=== PATIENT | male | born 1965 | race African-American/Black ===

== ENCOUNTER 2018-07-04 11:04 | Inpatient (IN) | payer OTHER ==
[2018-07-04 12:51] VITALS: BMI 22.7
--- NOTE | 2018-07-04 14:45 | HP ---
COWS - Scale Resting Pulse: 0= [place] 80 or Below Sweatin=Flushed/Facial Moisture Restless Observation: 0= Sits Still Pupil Size: 2= Moderately Dilated Bone or Joint Aches: 2= Severe Diffuse Aches Runny Nose/ Eye Tearin= Nasal Congestion GI Upset > 30mins: 2= Nausea/Diarrhea Tremor Observation: 1= Tremor [place], Not Seen Yawning Observation: 1= 1-2x During Session Anxiety or Irritability: 2=Irritable/Anxious Goose Flesh Skin: 0=Smooth Skin COWS Score: 13 CIWA Score - Admission Criteria OASAS Guidelines: Admission for Medically Managed Detox: Requires at least one of the followin. CIWA greater than 12 2. Seizures within the past 24 hours 3. Delirium tremens within the past 24 hours 4. Hallucinations within the past 24 hours 5. Acute intervention needed for co occurring medical disorder 6. Acute intervention needed for co occurring psychiatric disorder 7. Severe withdrawal that cannot be handled at a lower level of care (continued vomiting, continued diarrhea, abnormal vital signs) requiring intravenous medication and/or fluids 8. Admission ROS [facility] Chief Complaint: HEROIN WITHDRAWAL SYMPTOMS. Allergies/Adverse Reactions: Allergies Allergy/AdvReac Type Severity Reaction Status Date / Time erythromycin base AdvReac Verified 07/04/18 13:58 shellfish derived AdvReac Verified 07/04/18 13:58 History of Present Illness: PATIENT REFERRED BY [facility] FOR DETOX FROM HEROIN. PATIENT STARTED SNIFFING HEROIN AT AGE 12. SNIFFS UP TO 15 BAGS DAILY, LAST TIME HE USED WAS THIS MORNING. PATIENT DENIES H/O OVERDOSE AND SEIZURES. +HISTORY OF FALLS AND BLACKOUTS. THIS IS PATIENTS FIRST ADMISSION TO DETOX AT [facility]. PATIENT PMH INCLUDES ASTHMA, BACK PAIN-CHRONIC AND AMBULATES WITH CANE, PROSTATE CANCER AND DEPRESSION. DENIES SI/HI AND SUICIDE ATTEMPTS. Exam Limitations: No Limitations - Ebola screening Have you traveled outside of the country in the last 21 days: No Have you had contact with anyone from an Ebola affected area: No Have you been sick,other than usual withdrawal symptoms: No Do you have a fever: No - Review of Systems Constitutional: Chills, Night Sweats, Changes in sleep, Unexplained wgt Loss EENT: reports: Nose Congestion Respiratory: reports: SOB with Exertion Cardiac: reports: No Symptoms Reported GI: reports: Diarrhea, Nausea, Poor Fluid Intake : reports: No Symptoms Reported Musculoskeletal: reports: Back Pain, Muscle Pain Integumentary: reports: Sweating Neuro: reports: Headache, Tremors Endocrine: reports: Unexplained Weight Loss Hematology: reports: No Symptoms Reported Psychiatric: reports: Orientated x3, Anxious, Depressed Patient History - Patient Medical History Hx Anemia: No Hx Asthma: Yes Hx Chronic Obstructive Pulmonary Disease (COPD): No Hx Cancer: Yes (NEW DX PROSTATE CANCER) Hx Cardiac Disorders: No Hx Congestive Heart Failure: No Hx Hypertension: No Hx Hypercholesterolemia: No Hx Pacemaker: No HX Cerebrovascular Accident: No Hx Seizures: No Hx Dementia: No Hx Diabetes: No Hx Gastrointestinal Disorders: No Hx Liver Disease: No Hx Genitourinary Disorders: No Hx Sexually Transmitted Disorders: No Hx Renal Disease (ESRD): No Hx Thyroid Disease: No Hx Human Immunodeficiency Virus (HIV): No Hx Hepatitis C: No Hx Depression: Yes Hx Suicide Attempt: No Hx Bipolar Disorder: No Hx Schizophrenia: No - Patient Surgical History Past Surgical History: No Hx Neurologic Surgery: No Hx Cataract Extraction: No Hx Cardiac Surgery: No Hx Lung Surgery: No Hx Breast Surgery: No Hx Breast Biopsy: No Hx Abdominal Surgery: No Hx Appendectomy: No Hx Cholecystectomy: No Hx Genitourinary Surgery: No Hx Orthopedic Surgery: No Anesthesia Reaction: No - PPD History Previous Implant?: Yes Documented Results: Positive w/o proof Implanted On Prior R Admission?: No PPD to be Administered?: No - Smoking Cessation Smoking history: Current every day smoker Have you smoked in the past 12 months: Yes Aproximately how many cigarettes per day: 10 Hx Chewing Tobacco Use: No Initiated information on smoking cessation: Yes 'Breaking Loose' booklet given: 07/04/18 - Substance & Tx. History Hx Alcohol Use: No Hx Substance Use: Yes Substance Use Type: Heroin Hx Substance Use Treatment: No - Substances Abused Heroin Route: Inhalation Frequency: Daily Amount used: 15 BAGS Age of first use: 12 Date of Last Use: 07/04/18 Non-Rx Methadone Route: Oral Frequency: 1-2 times per week Amount used: 80MG Age of first use: 43 Date of Last Use: 07/01/18 Family Disease History - Family Disease History Family Disease History: CA: Mother (ALIVE, UNKNOW TYPE) Admission Physical Exam BHS - Vital Signs Vital Signs: Vital Signs - 24 hr 07/04/18 12:43 Temperature 98.7 F Pulse Rate 71 Respiratory 18 Rate Blood Pressure 127/83 - Physical General Appearance: Yes: Thin, Tremorous, Sweating, Anxious HEENTM: Yes: EOMI, Hearing grossly Normal, Normocephalic, Normal Voice, MAYDA, Pharynx Normal, Nasal Congestion Respiratory: Yes: Chest Non-Tender, Lungs Clear, Normal Breath Sounds, No Respiratory Distress, No Accessory Muscle Use Neck: Yes: No masses,lesions,Nodules, Supple Breast: Yes: Breast Exam Deferred Cardiology: Yes: Regular Rhythm, Regular Rate, S1, S2 Abdominal: Yes: Normal Bowel Sounds, Non Tender, Soft Genitourinary: Yes: Within Normal Limits Back: Yes: Normal Inspection, Muscle Spasm Musculoskeletal: Yes: full range of Motion, Back pain, Muscle Pain Extremities: Yes: Normal Inspection, Normal Range of Motion, Non-Tender, Tremors Neurological: Yes: datapower consultant II-XII NML intact, Fully Oriented, Alert, Normal Response , Depressed Affect Integumentary: Yes: Normal Color, Warm, Moist Lymphatic: Yes: Within Normal Limits - Diagnostic (1) Opioid dependence with withdrawal Current Visit: Yes Status: Acute (2) Nicotine dependence Current Visit: Yes Status: Chronic Qualifiers: Nicotine product type: cigarettes Substance use status: uncomplicated Qualified Code(s): F17.210 - Nicotine dependence, cigarettes, uncomplicated (3) Back pain Current Visit: Yes Status: Chronic Qualifiers: Back pain location: low back pain Chronicity: unspecified Back pain laterality: unspecified Sciatica laterality: sciatica laterality unspecified (4) Depressed affect Current Visit: Yes Status: Suspected Cleared for Admission [facility] - Detox or Rehab [facility] Level of Care: Medically Managed Detox Regimen/Protocol: Methadone [facility] Breath Alcohol Content Breath Alcohol Content: 0 Urine Drug Screen - Results Drug Screen Negative: No Urine Drug Screen Results: OPI-Opiates, MET-Methamphetamine, FEN-Fentanyl
[2018-07-04] MEDS ORDERED: MAGNESIUM HYDROX 2400MG/30ML ORAL SUSPENSION 30 ML CUP PO PRN (14:58)
[2018-07-04] MEDS ORDERED: LOPERAMIDE HCL 2 MG CAPSULE PO PRN (14:58)
[2018-07-04] MEDS ORDERED: hydrOXYzine PAMOATE 50 MG CAPSULE (FP) PO PRN (14:58)
[2018-07-04] MEDS ORDERED: guaiFENesin/D-METHORPHAN HB 10 ML UNIT-DOSE CUPS PO PRN (14:58)
[2018-07-04] MEDS ORDERED: P-EPHED 60MG/TRIPROLIDI 2.5MG TABLET PO PRN (14:58)
[2018-07-04] MEDS ORDERED: MENTHOL/PHENOL 1 EACH UD MM PRN (14:58)
[2018-07-04] MEDS ORDERED: MAGNESIUM CITRATE 300 ML BOTTLE PO PRN (14:58)
[2018-07-04] MEDS ORDERED: NICOTINE POLACRILEX 2 MG GUM BC PRN (14:58)
[2018-07-04] MEDS ORDERED: ACETAMINOPHEN 325 MG TABLET (FP) PO PRN (14:58)
[2018-07-04] MEDS ORDERED: IBUPROFEN 400 MG TABLET (FP) PO PRN (14:58)
[2018-07-04] MEDS ORDERED: MAG HYDROX/AL HYDROX/SIMETH 30 ML UNIT-DOSE CUP PO PRN (14:58)
[2018-07-04] MEDS: diazePAM 5 MG TABLET PO PRN (18:42)
[2018-07-04] MEDS: ALBUTEROL SO4 8 GM HFA INHALER IH PRN (18:44)
[2018-07-04] MEDS ORDERED: METHADONE HCL 10 MG TABLET (FOR DETOX USE ONLY) PO ONE ×2 (18:45→23:00)
--- NOTE | 2018-07-04 20:03 | PN ---
BHS Progress Note Note: Patient states on Symbicort inhaler BID for COPD and wants it to be given.
[2018-07-04] MEDS: THIAMINE HCL 100 MG TABLET (FP) PO SCH (22:23)
[2018-07-04] MEDS: CYCLOBENZAPRINE HCL 5 MG TABLET PO PRN (22:23)
[2018-07-04] MEDS: MELATONIN 5 MG TABLETS PO PRN (22:24)
[2018-07-04] MEDS: BUDESONIDE/FORMETEROL FUMARATE 80/4.5 mcg INHALER IH SCH (22:25)
--- NOTE | 2018-07-05 08:47 | CONSULT ---
[facility] Psychiatric Consult - Data Date of interview: 07/05/18 Admission source: [facility] Identifying data: Patient is a 53 year old single male, father of two, unemployed, residing in a correction, and is supported by disability benefits. This is patient's first admission to detox at [facility]. Patient admitted to for opioid dependence. Substance Abuse History: Smoking Cessation. Smoking history: Current every day smoker. Have you smoked in the past 12 months: Yes. Aproximately how many cigarettes per day: 10. Hx Chewing Tobacco Use: No. Initiated information on smoking cessation: Yes. 'Breaking Loose' booklet given: 07/04/18. - Substance & Tx. History. Hx Alcohol Use: No. Hx Substance Use: Yes. Substance Use Type : Heroin. Hx Substance Use Treatment: No. - Substances Abused. Heroin. Route: Inhalation. Frequency: Daily. Amount used: 15 BAGS. Age of first use: 12. Date of Last Use: 07/04/18. Non-Rx Methadone. Route: Oral. Frequency : 1-2 times per week. Amount used: 80MG. Age of first use: 43. Date of Last Use: 07/01/18 Medical History: prostate cancer. Psychiatric History: Patient denies h/o psychiatric hospitalization, outpatient care, and suicide attempt. Physical/Sexual Abuse/Trauma History: denies. Mental Status Exam - Mental Status Exam Alert and Oriented to: Time, Place, Person Cognitive Function: Good Patient Appearance: Unkempt Mood: Euthymic Affect: Mood Congruent Patient Behavior: Cooperative Speech Pattern: Appropriate Voice Loudness: Moderately Soft/Quiet Thought Process: Intact, Goal Oriented Thought Disorder: Not Present Hallucinations: Denies Suicidal Ideation: Denies Homicidal Ideation: Denies Insight/Judgement: Poor Sleep: Fair Appetite: Fair Muscle strength/Tone: Normal Gait/Station: Normal Psychiatric Findings - Problem List ([place] 1, 2,3) (1) Opioid dependence with withdrawal Current Visit: Yes Status: Acute (2) Nicotine dependence Current Visit: Yes Status: Chronic Qualifiers: Nicotine product type: cigarettes Substance use status: uncomplicated Qualified Code(s): F17.210 - Nicotine dependence, cigarettes, uncomplicated - Initial Treatment Plan Initial Treatment Plan: Psychoeducation provided. Detoxification in progress. Observation.
[2018-07-05] MEDS ORDERED: METHADONE HCL 10 MG TABLET (FOR DETOX USE ONLY) PO ONE (10:00)
--- NOTE | 2018-07-05 10:11 | PN ---
[facility]HS COWS - Scale Resting Pulse: 0= [place] 80 or Below Sweatin=Flushed/Facial Moisture Restless Observation: 0= Sits Still Pupil Size: 2= Moderately Dilated Bone or Joint Aches: 0= None Runny Nose/ Eye Tearin= None GI Upset > 30mins: 2= Nausea/Diarrhea Tremor Observation of Outstretched Hands: 0= None Yawning Observation: 1= 1-2x During Session Anxiety or Irritability: 1=Feels Anxious/Irritable Goose Flesh Skin: 0=Smooth Skin COWS Score: 8 BHS Progress Note (SOAP) Subjective: PATIENT C/O SWEATING, CHILLS, ANXIETY AND DIARRHEA. Objective: 07/05/18 10:10 Vital Signs Temperature 98.7 F 07/05/18 09:16 Pulse Rate 65 07/05/18 09:16 Respiratory Rate 18 07/05/18 09:16 Blood Pressure 100/58 L 07/05/18 09:16 O2 Sat by Pulse Oximetry (%) PE: ALERT AND ORIENTED X 3 SKIN WARM AND MOIST CAR S1S2 RESP CTA BL EXT FULL ROM, AMB AD SILVIA ANXIOUS Assessment: 07/05/18 10:11 WITHDRAWAL SX Plan: CONTINUE DETOX REGIMEN ENCOURAGE ORAL FLUIDS CONTINUE TO MONITOR CLINICALLY
[2018-07-05 10:17] LABS: HEMATOCRIT 40.9 % (35.4-49); HEMOGLOBIN 13.3 GM/dL (11.7-16.9); MCH 29.3 pg (25.7-33.7); MCHC 32.5 g/dl (32.0-35.9); MEAN PLT VOLUME 8.2 fl (7.5-11.1); PLATELET COUNT 299 K/MM3 (134-434); RBC 4.54 M/mm3 (4.00-5.60); WHITE BLOOD COUNT 4.7 K/mm3 (4.0-10.0)
[2018-07-05] MEDS: PRENATAL VITAMINS W/ FOLIC ACID TABLET (FP) PO SCH (10:22)
[2018-07-05] MEDS: NICOTINE 21 MG/24 HOURS TOPICAL PATCH TD SCH (10:22)
[2018-07-05] MEDS: MONTELUKAST NA 10 MG TABLET PO SCH (10:22)
[2018-07-05] MEDS: BUDESONIDE/FORMETEROL FUMARATE 80/4.5 mcg INHALER IH SCH ×2 (10:22→22:14)
[2018-07-05] MEDS: diazePAM 5 MG TABLET PO PRN ×2 (10:22→22:14)
[2018-07-05] MEDS: ALBUTEROL SO4 8 GM HFA INHALER IH PRN (10:24)
[2018-07-05 10:41] LABS: ALBUMIN 3.2 g/dl (3.4-5.0); ALK PHOS 84 U/L (45-117); ANION GAP 6 MMOL/L (8-16); BILIRUBIN,TOTAL 0.3 mg/dL (0.2-1); BLOOD UREA NITROGEN 12 mg/dL (7-18); CALCIUM 8.3 mg/dL (8.5-10.1); CHLORIDE 107 mmol/L (98-107); CO2 30 mmol/L (21-32); CREATININE 0.7 mg/dL (0.55-1.3); GLUCOSE,RANDOM 91 mg/dL (74-106); POTASSIUM 4.3 mmol/L (3.5-5.1); SGOT/AST 17 U/L (15-37); SGPT/ALT 16 U/L (13-61); SODIUM 143 mmol/L (136-145); TOT PROT 6.3 g/dl (6.4-8.2)
--- NOTE | 2018-07-05 11:55 | EKG ---
Test Reason : Blood Pressure : / mmHG Vent. Rate : 062 BPM Atrial Rate : 062 BPM P-R Int : 130 ms QRS Dur : 108 ms QT Int : 442 ms P-R-T Axes : 076 067 069 degrees QTc Int : 448 ms NORMAL SINUS RHYTHM NORMAL ECG NO PREVIOUS ECGS AVAILABLE Confirmed by EDINSON NICHOLSON MD ([id number]) on 07/05/2018 11:55:38 AM Referred By: Confirmed By:EDINSON NICHOLSON MD
[2018-07-05] MEDS: THIAMINE HCL 100 MG TABLET (FP) PO SCH (22:14)
[2018-07-05] MEDS: CYCLOBENZAPRINE HCL 5 MG TABLET PO PRN (22:14)
[2018-07-06] MEDS ORDERED: METHADONE HCL 5 MG TABLET (FOR DETOX USE ONLY) PO ONE (10:00)
[2018-07-06] MEDS: diazePAM 5 MG TABLET PO PRN (10:13)
[2018-07-06] MEDS: BUDESONIDE/FORMETEROL FUMARATE 80/4.5 mcg INHALER IH SCH ×2 (10:13→22:59)
[2018-07-06] MEDS: NICOTINE 21 MG/24 HOURS TOPICAL PATCH TD SCH (10:13)
[2018-07-06] MEDS: PRENATAL VITAMINS W/ FOLIC ACID TABLET (FP) PO SCH (10:14)
[2018-07-06] MEDS: MONTELUKAST NA 10 MG TABLET PO SCH (10:14)
--- NOTE | 2018-07-06 11:02 | PN ---
BHS COWS - Scale Resting Pulse: 0= [place] 80 or Below Sweatin= Chills/Flushing Restless Observation: 1= Difficult to Sit Still Pupil Size: 0= Normal to Room Light Bone or Joint Aches: 1= Mild Discomfort Runny Nose/ Eye Tearin= None GI Upset > 30mins: 0= None Tremor Observation of Outstretched Hands: 2= Slight Tremor Visible Yawning Observation: 0= None Anxiety or Irritability: 1=Feels Anxious/Irritable Goose Flesh Skin: 0=Smooth Skin COWS Score: 6 BHS Progress Note (SOAP) Subjective: PATIENT C/O SHAKES, CHILLS, INTERRUPTED SLEEP, ANXIETY/RESTLESSNESS. Objective: 07/06/18 11:00 Vital Signs Temperature 98.2 F 07/06/18 06:29 Pulse Rate 68 07/06/18 06:29 Respiratory Rate 18 07/06/18 06:29 Blood Pressure 117/70 07/06/18 06:29 O2 Sat by Pulse Oximetry (%) Laboratory Tests 07/05/18 07/05/18 07/05/18 07:00 07:00 07:00 WBC 4.7 RBC 4.54 Hgb 13.3 Hct 40.9 MCV 90.0 MCH 29.3 MCHC 32.5 RDW 15.0 Plt Count 299 MPV 8.2 Sodium 143 Potassium 4.3 Chloride 107 Carbon Dioxide 30 Anion Gap 6 L BUN 12 Creatinine 0.7 Creat Clearance w eGFR > 60 Random Glucose 91 Calcium 8.3 L Total Bilirubin 0.3 AST 17 ALT 16 Alkaline Phosphatase 84 Total Protein 6.3 L Albumin 3.2 L RPR Titer Nonreactive PE: ALERT AND ORIENTED X 3 SKIN WARM, +SWEATING TO CHEST AREA EXT FULL ROM, NO EDEMA, MILD TREMORS FELT AMB AD SILVIA Assessment: 07/06/18 11:02 A/P: WITHDRAWAL SX Plan: CONTINUE DETOX REGIMEN ENCOURAGE ORAL FLUIDS CONTINUE TO MONITOR CLINICALLY 07/06/18 11:02
[2018-07-06] MEDS: THIAMINE HCL 100 MG TABLET (FP) PO SCH (22:18)
[2018-07-06] MEDS: CYCLOBENZAPRINE HCL 5 MG TABLET PO PRN (22:18)
[2018-07-06] MEDS: MELATONIN 5 MG TABLETS PO PRN (22:18)
[2018-07-06 23:30] LABS: URINE APPEARANCE TURBID; URINE BILIRUBIN NEGATIVE (<2.0 mg/dL); URINE COLOR YELLOW; URINE GLUCOSE (UA) NEGATIVE (NEGATIVE); URINE KETONE TRACE (NEGATIVE); URINE LEUK ESTERASE NEGATIVE (NEGATIVE); URINE NITRITE NEGATIVE (NEGATIVE); URINE PROTEIN 1+ (NEGATIVE); URINE UROBILINOGEN NEGATIVE mg/dL (0.2-1.0)
[2018-07-06 23:42] LABS: CALCIUM OXALATE CRYSTALS MODERATE /hpf (NONE SEEN); EPI CELLS RARE /HPF (FEW); URINE BACTERIA RARE /hpf (NONE SEEN); URINE MUCUS MANY
[2018-07-07] MEDS ORDERED: METHADONE HCL 5 MG TABLET (FOR DETOX USE ONLY) PO ONE (10:00)
[2018-07-07] MEDS: CYCLOBENZAPRINE HCL 5 MG TABLET PO PRN ×2 (10:21→22:28)
[2018-07-07] MEDS: MONTELUKAST NA 10 MG TABLET PO SCH (10:21)
[2018-07-07] MEDS: PRENATAL VITAMINS W/ FOLIC ACID TABLET (FP) PO SCH (10:21)
[2018-07-07] MEDS: BUDESONIDE/FORMETEROL FUMARATE 80/4.5 mcg INHALER IH SCH ×2 (10:21→22:27)
[2018-07-07] MEDS: NICOTINE 21 MG/24 HOURS TOPICAL PATCH TD SCH (10:21)
--- NOTE | 2018-07-07 10:52 | PN ---
[facility] Progress Note Note: PATIENT CONTINUES WITH DETOX REGIMEN. ALERT AND ORIENTED X 3. STATES HE FEELS BETTER. C/O POOR APPETITE. Vital Signs Temperature 98.5 F 07/07/18 09:55 Pulse Rate 74 07/07/18 09:55 Respiratory Rate 18 07/07/18 09:55 Blood Pressure 116/81 07/07/18 09:55 O2 Sat by Pulse Oximetry (%) Laboratory Tests 07/05/18 07/05/18 07/05/18 07:00 07:00 07:00 WBC 4.7 RBC 4.54 Hgb 13.3 Hct 40.9 MCV 90.0 MCH 29.3 MCHC 32.5 RDW 15.0 Plt Count 299 MPV 8.2 Sodium 143 Potassium 4.3 Chloride 107 Carbon Dioxide 30 Anion Gap 6 L BUN 12 Creatinine 0.7 Creat Clearance w eGFR > 60 Random Glucose 91 Calcium 8.3 L Total Bilirubin 0.3 AST 17 ALT 16 Alkaline Phosphatase 84 Total Protein 6.3 L Albumin 3.2 L Urine Color Urine Appearance Urine pH Ur Specific [place] Urine Protein Urine Glucose (UA) Urine Ketones Urine Blood Urine Nitrite Urine Bilirubin Urine Urobilinogen Ur Leukocyte Esterase Urine WBC (Auto) Urine RBC (Auto) Ur Epithelial Cells Calcium Oxalate Crystal Urine Bacteria Urine Mucus RPR Titer Nonreactive 07/06/18 14:50 WBC RBC Hgb Hct MCV MCH MCHC RDW Plt Count MPV Sodium Potassium Chloride Carbon Dioxide Anion Gap BUN Creatinine Creat Clearance w eGFR Random Glucose Calcium Total Bilirubin AST ALT Alkaline Phosphatase Total Protein Albumin Urine Color Yellow Urine Appearance Turbid Urine pH 5.0 Ur Specific [place] 1.030 Urine Protein 1+ H Urine Glucose (UA) Negative Urine Ketones Trace H Urine Blood Negative Urine Nitrite Negative Urine Bilirubin Negative Urine Urobilinogen Negative Ur Leukocyte Esterase Negative Urine WBC (Auto) 3 Urine RBC (Auto) 6 Ur Epithelial Cells Rare Calcium Oxalate Crystal Moderate Urine Bacteria Rare Urine Mucus Many RPR Titer PE: SKIN WARM AND DRY ALERT AND ORIENTED X 3 EXT FULL ROM AMB AD SILVIA CALM MANNER A/P: WITHDRAWAL SX CONTINUE DETOX ENCOURAGE ORAL FLUIDS ADD ENSURE SUPPLEMENT 120 ML PO BID
[2018-07-07] MEDS: THIAMINE HCL 100 MG TABLET (FP) PO SCH (22:28)
[2018-07-07] MEDS: MELATONIN 5 MG TABLETS PO PRN (22:28)
[2018-07-08] MEDS ORDERED: METHADONE HCL 10 MG TABLET (FOR DETOX USE ONLY) PO ONE (10:00)
[2018-07-08] MEDS: MONTELUKAST NA 10 MG TABLET PO SCH (10:07)
[2018-07-08] MEDS: PRENATAL VITAMINS W/ FOLIC ACID TABLET (FP) PO SCH (10:07)
[2018-07-08] MEDS: CYCLOBENZAPRINE HCL 5 MG TABLET PO PRN (10:07)
[2018-07-08] MEDS: NICOTINE 21 MG/24 HOURS TOPICAL PATCH TD SCH (10:07)
[2018-07-08] MEDS: BUDESONIDE/FORMETEROL FUMARATE 80/4.5 mcg INHALER IH SCH ×2 (10:46→22:24)
--- NOTE | 2018-07-08 13:29 | PN ---
BHS Progress Note (SOAP) Subjective: Anxious, restless. Patient stated that he plans to return to his old suboxone program in [place] upon discharge Objective: 07/08/18 13:26 Last Vital Signs Temp Pulse Resp BP Pulse Ox 98.1 F 71 16 111/71 07/08/18 09:26 07/08/18 09:26 07/08/18 09:26 07/08/18 09:26 Laboratory Tests 07/05/18 07/05/18 07/05/18 07:00 07:00 07:00 WBC 4.7 RBC 4.54 Hgb 13.3 Hct 40.9 MCV 90.0 MCH 29.3 MCHC 32.5 RDW 15.0 Plt Count 299 MPV 8.2 Sodium 143 Potassium 4.3 Chloride 107 Carbon Dioxide 30 Anion Gap 6 L BUN 12 Creatinine 0.7 Creat Clearance w eGFR > 60 Random Glucose 91 Calcium 8.3 L Total Bilirubin 0.3 AST 17 ALT 16 Alkaline Phosphatase 84 Total Protein 6.3 L Albumin 3.2 L Urine Color Urine Appearance Urine pH Ur Specific [place] Urine Protein Urine Glucose (UA) Urine Ketones Urine Blood Urine Nitrite Urine Bilirubin Urine Urobilinogen Ur Leukocyte Esterase Urine WBC (Auto) Urine RBC (Auto) Ur Epithelial Cells Calcium Oxalate Crystal Urine Bacteria Urine Mucus RPR Titer Nonreactive 07/06/18 14:50 WBC RBC Hgb Hct MCV MCH MCHC RDW Plt Count MPV Sodium Potassium Chloride Carbon Dioxide Anion Gap BUN Creatinine Creat Clearance w eGFR Random Glucose Calcium Total Bilirubin AST ALT Alkaline Phosphatase Total Protein Albumin Urine Color Yellow Urine Appearance Turbid Urine pH 5.0 Ur Specific [place] 1.030 Urine Protein 1+ H Urine Glucose (UA) Negative Urine Ketones Trace H Urine Blood Negative Urine Nitrite Negative Urine Bilirubin Negative Urine Urobilinogen Negative Ur Leukocyte Esterase Negative Urine WBC (Auto) 3 Urine RBC (Auto) 6 Ur Epithelial Cells Rare Calcium Oxalate Crystal Moderate Urine Bacteria Rare Urine Mucus Many RPR Titer Labs reviewed: UA abnormal Assessment: 07/08/18 13:27 Withdrawal symptoms Noted with abnormal UA Plan: Continue detox Abnormal UA: encouraged PO water intake, repeat UA today. Follow up with PCP within 1-2 weeks post discharge
[2018-07-08 19:24] LABS: URINE APPEARANCE SLCLOUDY; URINE BILIRUBIN NEGATIVE (<2.0 mg/dL); URINE COLOR AMBER; URINE GLUCOSE (UA) NEGATIVE (NEGATIVE); URINE KETONE TRACE (NEGATIVE); URINE LEUK ESTERASE NEGATIVE (NEGATIVE); URINE NITRITE NEGATIVE (NEGATIVE); URINE PROTEIN NEGATIVE (NEGATIVE); URINE UROBILINOGEN NEGATIVE mg/dL (0.2-1.0)
[2018-07-08] MEDS: THIAMINE HCL 100 MG TABLET (FP) PO SCH (22:24)
[2018-07-08] MEDS: MELATONIN 5 MG TABLETS PO PRN (22:24)
[2018-07-09] MEDS ORDERED: METHADONE HCL 5 MG TABLET (FOR DETOX USE ONLY) PO ONE (06:00)
[2018-07-09 09:40] VITALS: BP 120/77; PULSE 79; TEMP 97.5
[2018-07-09] MEDS: PRENATAL VITAMINS W/ FOLIC ACID TABLET (FP) PO SCH (10:26)
[2018-07-09] MEDS: CYCLOBENZAPRINE HCL 5 MG TABLET PO PRN (10:27)
[2018-07-09] MEDS: NICOTINE 21 MG/24 HOURS TOPICAL PATCH TD SCH (10:28)
[2018-07-09] MEDS: BUDESONIDE/FORMETEROL FUMARATE 80/4.5 mcg INHALER IH SCH (10:29)
--- NOTE | 2018-07-09 10:46 | DS ---
[facility] Detox Discharge Summary Admission Date: 07/04/18 Discharge Date: 07/09/18 - History Present History: Opioid Dependence Additional Comments: 53 years old male admitted on 07/04/18 for opiate withdrawal sx completed opiate detox regimen - Physical Exam Results Vital Signs: Vital Signs Temperature 97.5 F L 07/09/18 09:40 Pulse Rate 79 07/09/18 09:40 Respiratory Rate 20 07/09/18 09:40 Blood Pressure 120/77 07/09/18 09:40 O2 Sat by Pulse Oximetry (%) Pertinent Admission Physical Exam Findings: opiate withdrawal sx Vital Signs Temperature 97.5 F L 07/09/18 09:40 Pulse Rate 79 07/09/18 09:40 Respiratory Rate 20 07/09/18 09:40 Blood Pressure 120/77 07/09/18 09:40 O2 Sat by Pulse Oximetry (%) Laboratory Last Values WBC 4.7 K/mm3 (4.0-10.0) 07/05/18 07:00 RBC 4.54 M/mm3 (4.00-5.60) 07/05/18 07:00 Hgb 13.3 GM/dL (11.7-16.9) 07/05/18 07:00 Hct 40.9 % (35.4-49) 07/05/18 07:00 MCV 90.0 fl (80-96) 07/05/18 07:00 MCH 29.3 pg (25.7-33.7) 07/05/18 07:00 MCHC 32.5 g/dl (32.0-35.9) 07/05/18 07:00 RDW 15.0 % (11.9-15.9) 07/05/18 07:00 Plt Count 299 K/MM3 (134-434) 07/05/18 07:00 MPV 8.2 fl (7.5-11.1) 07/05/18 07:00 Sodium 143 mmol/L (136-145) 07/05/18 07:00 Potassium 4.3 mmol/L (3.5-5.1) 07/05/18 07:00 Chloride 107 mmol/L (98-107) 07/05/18 07:00 Carbon Dioxide 30 mmol/L (21-32) 07/05/18 07:00 Anion Gap 6 MMOL/L (8-16) L 07/05/18 07:00 BUN 12 mg/dL (7-18) 07/05/18 07:00 Creatinine 0.7 mg/dL (0.55-1.3) 07/05/18 07:00 Creat Clearance w eGFR > 60 (>60) 07/05/18 07:00 Random Glucose 91 mg/dL (74-106) 07/05/18 07:00 Calcium 8.3 mg/dL (8.5-10.1) L 07/05/18 07:00 Total Bilirubin 0.3 mg/dL (0.2-1) 07/05/18 07:00 AST 17 U/L (15-37) 07/05/18 07:00 ALT 16 U/L (13-61) 07/05/18 07:00 Alkaline Phosphatase 84 U/L (45-117) 07/05/18 07:00 Total Protein 6.3 g/dl (6.4-8.2) L 07/05/18 07:00 Albumin 3.2 g/dl (3.4-5.0) L 07/05/18 07:00 Urine Color [place] 07/08/18 16:15 Urine Appearance Slcloudy 07/08/18 16:15 Urine pH 5.0 (5.0-8.0) 07/08/18 16:15 Ur Specific [place] 1.030 (1.010-1.035) 07/08/18 16:15 Urine Protein Negative (NEGATIVE) 07/08/18 16:15 Urine Glucose (UA) Negative (NEGATIVE) 07/08/18 16:15 Urine Ketones Trace (NEGATIVE) H 07/08/18 16:15 Urine Blood Negative (NEGATIVE) 07/08/18 16:15 Urine Nitrite Negative (NEGATIVE) 07/08/18 16:15 Urine Bilirubin Negative (<2.0 mg/dL) 07/08/18 16:15 Urine Urobilinogen Negative mg/dL (0.2-1.0) 07/08/18 16:15 Ur Leukocyte Esterase Negative (NEGATIVE) 07/08/18 16:15 Urine WBC (Auto) 3 /hpf (3-5) 07/06/18 14:50 Urine RBC (Auto) 6 /hpf (0-3) 07/06/18 14:50 Ur Epithelial Cells Rare /HPF (FEW) 07/06/18 14:50 Calcium Oxalate Crystal Moderate /hpf (NONE SEEN) 07/06/18 14:50 Urine Bacteria Rare /hpf (NONE SEEN) 07/06/18 14:50 Urine Mucus Many 07/06/18 14:50 RPR Titer Nonreactive (NONREACTIVE) 07/05/18 07:00 lab noted - Treatment Hospital Course: Detox Protocol Followed, Detoxed Safely, Responded well, Discharged Condition Good, Rehab Referral Accepted Patient has Accepted [facility] - Medication Discharge Medications: Ambulatory Orders Cyclobenzaprine HCl 5 mg PO DAILY PRN 07/04/18 Fluticasone Propionate [Flovent Diskus] 50 mcg IH DAILY PRN 07/04/18 Ibuprofen 400 mg PO Q6H PRN 07/04/18 Montelukast Sodium [Singulair] 10 mg PO DAILY 07/04/18 Prednisone 20 mg PO DAILY 07/04/18 Sulfamethoxazole/Trimethoprim [Sulfamethoxazole-Tmp Ds Tablet] 1 each PO DAILY 07/04/18 Triamcinolone Acetonide [24 Hour Nasal Allergy] 16.9 ml NS DAILY 07/04/18 - Diagnosis (1) Opioid dependence with withdrawal Current Visit: Yes Status: Acute (2) Nicotine dependence Current Visit: Yes Status: Acute Qualifiers: Nicotine product type: cigarettes Substance use status: in withdrawal Qualified Code(s): F17.213 - Nicotine dependence, cigarettes, with withdrawal (3) Asthma Current Visit: Yes Status: Chronic Qualifiers: Asthma severity: mild Asthma persistence: intermittent Asthma complication type: with status asthmaticus Qualified Code(s): J45.22 - Mild intermittent asthma with status asthmaticus - AMA Did Patient Leave Against Medical Advice: No
[2018-07-09] MEDS: MONTELUKAST NA 10 MG TABLET PO SCH (11:25)
== END 2018-07-09 14:15 | disposition other institution (70) | DRG 773 ==
LOC: YASAS 11:04 → Y3N 17:03
PROC: HZ2ZZZZ Detoxification Services for Substance Abuse Treatment (ICD-10-PCS; principal; 2018-07-04)
DX: F11.23 Opioid dependence with withdrawal (principal); F17.213 Nicotine dependence, cigarettes, with withdrawal; F32.9 Major depressive disorder, single episode, unspecified; J45.22 Mild intermittent asthma with status asthmaticus; C61 Malignant neoplasm of prostate; M54.5 Low back pain; R26.89 Other abnormalities of gait and mobility; Z99.89 Dependence on other enabling machines and devices
CPT/HCPCS: 36415; 71045-TC-FY; 80053; 81003; 81015; 85027; 86593; 93005; 93010

== ENCOUNTER 2018-07-09 14:24 | Inpatient (IN) | payer OTHER ==
--- NOTE | 2018-07-09 21:03 | HP ---
[facility] Rehab Assess/Revision - Admission History Admitted to Rehab from: [facility] Date of Admission to Rehab: 07/09/2018 - Vital signs Vital Signs: Vital Signs Period Temp Pulse Resp BP Sys/Szymanski Pulse Ox Last 24 Hr 98.8 F 89 18 115/75 - Findings Detox History & Physical reviewed: Yes Concur with findings: Yes Inpatient Rehab Admission - Initial Determination Are CD services needed?: Yes Free of communicable disease: Yes Not in need of hospitalization: Yes - Rehab Admission Criteria Previous failed treatment: Yes Poor recovery environment: Yes Comorbidities: Yes Lacks judgement: No Patient is meeting Inpatient Rehab admission criteria:: Yes
[2018-07-09] MEDS ORDERED: NICOTINE POLACRILEX 2 MG GUM BUC PRN (21:09)
[2018-07-09] MEDS ORDERED: LOPERAMIDE HCL 2 MG CAPSULE PO PRN (21:09)
[2018-07-09] MEDS ORDERED: MAGNESIUM CITRATE 300 ML BOTTLE PO PRN (21:09)
[2018-07-09] MEDS ORDERED: CYCLOBENZAPRINE HCL 5 MG TABLET PO PRN (21:09)
[2018-07-09] MEDS ORDERED: MENTHOL/PHENOL 1 EACH UD MM PRN (21:09)
[2018-07-09] MEDS ORDERED: MAG HYDROX/AL HYDROX/SIMETH 30 ML UNIT-DOSE CUP PO PRN (21:09)
[2018-07-09] MEDS ORDERED: MAGNESIUM HYDROX 2400MG/30ML ORAL SUSPENSION 30 ML CUP PO PRN (21:09)
[2018-07-09] MEDS: MONTELUKAST NA 10 MG TABLET PO SCH (21:57)
[2018-07-09] MEDS: THIAMINE HCL 100 MG TABLET (FP) PO SCH (21:58)
[2018-07-09] MEDS: MELATONIN 5 MG TABLETS PO PRN (21:59)
[2018-07-09] MEDS: ACETAMINOPHEN 325 MG TABLET (FP) PO PRN (22:00)
--- NOTE | 2018-07-10 06:09 | HP ---
Psychiatrist Admission - Data Date of interview: 07/10/18 Admission source: /[facility] Identifying data: This is the first [facility] admission for this 53 years old single male, father of 2 children, unemployed on SSI, homeless Medical History: Significant for history of treatment PPD+ and prostate cancer. Smokes 10 cigarettes daily Psychiatric History: Denies history of previous psychiatric treatment Physical/Sexual Abuse/Trauma History: Denies history of emotional, physical or sexual abuse as well as DV relationship. No service Additional Comment: Reports history of multiple previous arrests including 11 felony convictions. Reports being on parole till February 23, 2020 Vital Signs: Vital Signs - 24 hr 07/09/18 07/10/18 07/10/18 16:44 00:30 03:30 Temperature 98.8 F Pulse Rate 89 Respiratory 18 18 18 Rate Blood Pressure 115/75 Allergies/Adverse Reactions: Allergies Allergy/AdvReac Type Severity Reaction Status Date / Time ibuprofen Allergy Severe Hives Verified 07/09/18 16:41 erythromycin base Allergy Intermediate Hives Verified 07/09/18 15:39 shellfish derived Allergy Hives Verified 07/09/18 15:39 Date of last physical exam: 07/04/18 Concur with the findings of this exam: Yes - Substance Abuse/Tx History Hx Alcohol Use: No Hx Substance Use: Yes Substance Use Type: Heroin (Started using heroin at age 12, consumes 15 bags daily. Last used on 07/04/18), Opiates (Started using non Rx methadone at age 43 , consumes 80 mg/day. Last used on 07/01/18) Hx Substance Use Treatment: Yes (2 previous inpt detox & 2 inpt rehab admissions ) Mental Status Exam - Mental Status Exam Alert and Oriented to: Time, Place, Person Cognitive Function: Fair Patient Appearance: Well Groomed Mood: Anxious Affect: Appropriate Patient Behavior: Cooperative Speech Pattern: Clear Voice Loudness: Normal Thought Process: Intact Thought Disorder: Not Present Hallucinations: Denies Suicidal Ideation: Denies Homicidal Ideation: Denies Insight/Judgement: Fair Sleep: Poorly Appetite: Good Muscle strength/Tone: Normal Gait/Station: Other (Uses a cane as ambulatory aid) Psychiatric Findings - Problem List ([place] 1, 2,3) (1) Opioid dependence Current Visit: Yes Status: Acute (2) Nicotine dependence Current Visit: Yes Status: Chronic Qualifiers: Nicotine product type: cigarettes Substance use status: in remission Qualified Code(s): F17.211 - Nicotine dependence, cigarettes, in remission (3) Substance-induced anxiety disorder Current Visit: Yes Status: Acute (4) Substance-induced sleep disorder Current Visit: Yes Status: Acute (5) Back pain Current Visit: Yes Status: Chronic Qualifiers: Back pain location: low back pain Chronicity: chronic Back pain laterality: unspecified Sciatica presence: unspecified whether sciatica present Qualified Code(s): M54.5 - Low back pain; G89.29 - Other chronic pain (6) H/O prostate cancer Current Visit: Yes Status: Chronic (7) Asthma Current Visit: No Status: Chronic Qualifiers: Asthma severity: mild Asthma persistence: intermittent Asthma complication type: uncomplicated Qualified Code(s): J45.20 - Mild intermittent asthma, uncomplicated - Initial Treatment Plan Initial Treatment Plan: 1) Start Belsomra 10 mg po HS prn for insomnia. 2) Monitor progress
[2018-07-10] MEDS: NICOTINE 14 MG/24 HOURS TOPICAL PATCH TD SCH (11:09)
[2018-07-10] MEDS: PRENATAL VITAMINS W/ FOLIC ACID TABLET (FP) PO SCH (11:09)
[2018-07-10] MEDS: LIDOCAINE 5% TOPICAL PATCH TP SCH (11:10)
[2018-07-10] MEDS: CYCLOBENZAPRINE HCL 5 MG TABLET PO PRN (11:11)
[2018-07-10] MEDS: BUDESONIDE/FORMETEROL FUMARATE 80/4.5 mcg INHALER IH SCH ×2 (11:36→22:54)
[2018-07-10] MEDS: ALBUTEROL SO4 8 GM HFA INHALER IH PRN (11:37)
[2018-07-10] MEDS: MONTELUKAST NA 10 MG TABLET PO SCH (22:03)
[2018-07-10] MEDS: THIAMINE HCL 100 MG TABLET (FP) PO SCH (22:03)
[2018-07-10] MEDS: hydrOXYzine PAMOATE 50 MG CAPSULE (FP) PO PRN (22:05)
[2018-07-10] MEDS: LIDOCAINE PATCH REMOVAL MC SCH (22:55)
[2018-07-11] MEDS: PRENATAL VITAMINS W/ FOLIC ACID TABLET (FP) PO SCH (10:01)
[2018-07-11] MEDS: NICOTINE 14 MG/24 HOURS TOPICAL PATCH TD SCH (10:01)
[2018-07-11] MEDS: ALBUTEROL SO4 8 GM HFA INHALER IH PRN (10:02)
[2018-07-11] MEDS: BUDESONIDE/FORMETEROL FUMARATE 80/4.5 mcg INHALER IH SCH ×2 (10:02→22:41)
[2018-07-11] MEDS: LIDOCAINE 5% TOPICAL PATCH TP SCH (10:02)
[2018-07-11] MEDS: CYCLOBENZAPRINE HCL 5 MG TABLET PO PRN ×2 (10:04→22:04)
[2018-07-11] MEDS: MELATONIN 5 MG TABLETS PO PRN (22:03)
[2018-07-11] MEDS: MONTELUKAST NA 10 MG TABLET PO SCH (22:03)
[2018-07-11] MEDS: THIAMINE HCL 100 MG TABLET (FP) PO SCH (22:03)
[2018-07-11] MEDS: hydrOXYzine PAMOATE 50 MG CAPSULE (FP) PO PRN (22:05)
[2018-07-11] MEDS: LIDOCAINE PATCH REMOVAL MC SCH (22:40)
[2018-07-12] MEDS: PRENATAL VITAMINS W/ FOLIC ACID TABLET (FP) PO SCH (10:31)
[2018-07-12] MEDS: BUDESONIDE/FORMETEROL FUMARATE 80/4.5 mcg INHALER IH SCH ×2 (10:31→22:03)
[2018-07-12] MEDS: NICOTINE 14 MG/24 HOURS TOPICAL PATCH TD SCH (10:32)
[2018-07-12] MEDS: LIDOCAINE 5% TOPICAL PATCH TP SCH ×2 (10:32→22:08)
[2018-07-12] MEDS: CYCLOBENZAPRINE HCL 5 MG TABLET PO PRN ×2 (10:33→22:06)
[2018-07-12] MEDS: hydrOXYzine PAMOATE 50 MG CAPSULE (FP) PO PRN ×2 (10:35→22:09)
[2018-07-12] MEDS: THIAMINE HCL 100 MG TABLET (FP) PO SCH (22:03)
[2018-07-12] MEDS: MONTELUKAST NA 10 MG TABLET PO SCH (22:03)
[2018-07-12] MEDS: ACETAMINOPHEN 325 MG TABLET (FP) PO PRN (22:06)
[2018-07-12] MEDS: SUVOREXANT 10 MG TABLET PO PRN (22:06)
[2018-07-12] MEDS: ALBUTEROL SO4 8 GM HFA INHALER IH PRN (22:10)
[2018-07-13] MEDS: PRENATAL VITAMINS W/ FOLIC ACID TABLET (FP) PO SCH (10:24)
[2018-07-13] MEDS: NICOTINE 14 MG/24 HOURS TOPICAL PATCH TD SCH (10:24)
[2018-07-13] MEDS: LIDOCAINE 5% TOPICAL PATCH TP SCH ×2 (10:24→21:58)
[2018-07-13] MEDS: BUDESONIDE/FORMETEROL FUMARATE 80/4.5 mcg INHALER IH SCH ×2 (10:24→21:55)
[2018-07-13] MEDS: ALBUTEROL SO4 8 GM HFA INHALER IH PRN ×2 (10:25→21:55)
[2018-07-13] MEDS: LIDOCAINE PATCH REMOVAL MC SCH (10:25)
[2018-07-13] MEDS: CYCLOBENZAPRINE HCL 5 MG TABLET PO PRN ×2 (10:27→21:56)
[2018-07-13] MEDS: hydrOXYzine PAMOATE 50 MG CAPSULE (FP) PO PRN ×2 (10:27→21:56)
[2018-07-13] MEDS: MONTELUKAST NA 10 MG TABLET PO SCH (21:54)
[2018-07-13] MEDS: THIAMINE HCL 100 MG TABLET (FP) PO SCH (21:54)
[2018-07-13] MEDS: MELATONIN 5 MG TABLETS PO PRN (21:54)
[2018-07-13] MEDS: SUVOREXANT 10 MG TABLET PO PRN (21:55)
[2018-07-14] MEDS: BUDESONIDE/FORMETEROL FUMARATE 80/4.5 mcg INHALER IH SCH ×2 (10:44→22:02)
[2018-07-14] MEDS: CYCLOBENZAPRINE HCL 5 MG TABLET PO PRN ×2 (10:44→22:02)
[2018-07-14] MEDS: NICOTINE 14 MG/24 HOURS TOPICAL PATCH TD SCH (10:44)
[2018-07-14] MEDS: PRENATAL VITAMINS W/ FOLIC ACID TABLET (FP) PO SCH (10:44)
[2018-07-14] MEDS: LIDOCAINE PATCH REMOVAL MC SCH (10:45)
[2018-07-14] MEDS: hydrOXYzine PAMOATE 50 MG CAPSULE (FP) PO PRN ×2 (10:47→22:04)
[2018-07-14] MEDS: ALBUTEROL SO4 8 GM HFA INHALER IH PRN ×2 (10:47→22:03)
[2018-07-14] MEDS: MONTELUKAST NA 10 MG TABLET PO SCH (22:02)
[2018-07-14] MEDS: MELATONIN 5 MG TABLETS PO PRN (22:04)
[2018-07-14] MEDS: LIDOCAINE 5% TOPICAL PATCH TP SCH (22:29)
[2018-07-14] MEDS: THIAMINE HCL 100 MG TABLET (FP) PO SCH (22:29)
[2018-07-15] MEDS: PRENATAL VITAMINS W/ FOLIC ACID TABLET (FP) PO SCH (10:13)
[2018-07-15] MEDS: NICOTINE 14 MG/24 HOURS TOPICAL PATCH TD SCH (10:13)
[2018-07-15] MEDS: CYCLOBENZAPRINE HCL 5 MG TABLET PO PRN ×2 (10:13→21:54)
[2018-07-15] MEDS: BUDESONIDE/FORMETEROL FUMARATE 80/4.5 mcg INHALER IH SCH ×2 (10:14→21:51)
[2018-07-15] MEDS: LIDOCAINE PATCH REMOVAL MC SCH (10:14)
[2018-07-15] MEDS: MONTELUKAST NA 10 MG TABLET PO SCH (21:49)
[2018-07-15] MEDS: THIAMINE HCL 100 MG TABLET (FP) PO SCH (21:49)
[2018-07-15] MEDS: MELATONIN 5 MG TABLETS PO PRN (21:50)
[2018-07-15] MEDS: ALBUTEROL SO4 8 GM HFA INHALER IH PRN (21:51)
[2018-07-15] MEDS: LIDOCAINE 5% TOPICAL PATCH TP SCH (21:52)
[2018-07-15] MEDS: hydrOXYzine PAMOATE 50 MG CAPSULE (FP) PO PRN (21:53)
[2018-07-16] MEDS: BUDESONIDE/FORMETEROL FUMARATE 80/4.5 mcg INHALER IH SCH ×2 (10:51→22:00)
[2018-07-16] MEDS: PRENATAL VITAMINS W/ FOLIC ACID TABLET (FP) PO SCH (10:51)
[2018-07-16] MEDS: LIDOCAINE PATCH REMOVAL MC SCH (10:52)
[2018-07-16] MEDS: NICOTINE 14 MG/24 HOURS TOPICAL PATCH TD SCH (10:52)
[2018-07-16] MEDS: hydrOXYzine PAMOATE 50 MG CAPSULE (FP) PO PRN ×2 (10:54→21:58)
[2018-07-16] MEDS: CYCLOBENZAPRINE HCL 5 MG TABLET PO PRN ×2 (10:54→21:54)
[2018-07-16] MEDS: ACETAMINOPHEN 325 MG TABLET (FP) PO PRN (10:54)
--- NOTE | 2018-07-16 17:07 | PN ---
[facility] Progress Note Note: Psychiatric nurse practitioner note: Dr. Schwarz's note read and appreciated. Patient c/o difficulty sleeping. Benefits and side effects discussed. Verbal consent given. Will order Belsomra 10mg qhs prn.
[2018-07-16] MEDS: THIAMINE HCL 100 MG TABLET (FP) PO SCH (21:51)
[2018-07-16] MEDS: MONTELUKAST NA 10 MG TABLET PO SCH (21:51)
[2018-07-16] MEDS: MELATONIN 5 MG TABLETS PO PRN (21:54)
[2018-07-16] MEDS: SUVOREXANT 10 MG TABLET PO PRN (21:54)
[2018-07-16] MEDS: LIDOCAINE 5% TOPICAL PATCH TP SCH (21:58)
[2018-07-16] MEDS: ALBUTEROL SO4 8 GM HFA INHALER IH PRN (22:00)
[2018-07-17] MEDS: PRENATAL VITAMINS W/ FOLIC ACID TABLET (FP) PO SCH (10:46)
[2018-07-17] MEDS: LIDOCAINE PATCH REMOVAL MC SCH (10:46)
[2018-07-17] MEDS: ALBUTEROL SO4 8 GM HFA INHALER IH PRN ×2 (10:47→21:57)
[2018-07-17] MEDS: NICOTINE 14 MG/24 HOURS TOPICAL PATCH TD SCH (10:47)
[2018-07-17] MEDS: BUDESONIDE/FORMETEROL FUMARATE 80/4.5 mcg INHALER IH SCH ×2 (10:47→21:57)
[2018-07-17] MEDS: CYCLOBENZAPRINE HCL 5 MG TABLET PO PRN ×2 (10:48→21:58)
[2018-07-17] MEDS ORDERED: COLLOIDAL OATMEAL 1 BAR EACH TP PRN (15:23)
[2018-07-17] MEDS: MELATONIN 5 MG TABLETS PO PRN (21:56)
[2018-07-17] MEDS: LIDOCAINE 5% TOPICAL PATCH TP SCH (21:56)
[2018-07-17] MEDS: SUVOREXANT 10 MG TABLET PO PRN (21:57)
[2018-07-17] MEDS: MONTELUKAST NA 10 MG TABLET PO SCH (21:57)
[2018-07-17] MEDS: THIAMINE HCL 100 MG TABLET (FP) PO SCH (21:57)
[2018-07-18] MEDS: PRENATAL VITAMINS W/ FOLIC ACID TABLET (FP) PO SCH (10:37)
[2018-07-18] MEDS: BUDESONIDE/FORMETEROL FUMARATE 80/4.5 mcg INHALER IH SCH ×2 (10:37→22:22)
[2018-07-18] MEDS: CYCLOBENZAPRINE HCL 5 MG TABLET PO PRN ×2 (10:37→22:06)
[2018-07-18] MEDS: LIDOCAINE PATCH REMOVAL MC SCH (10:38)
[2018-07-18] MEDS: NICOTINE 14 MG/24 HOURS TOPICAL PATCH TD SCH (10:38)
[2018-07-18] MEDS: SUVOREXANT 10 MG TABLET PO PRN (22:06)
[2018-07-18] MEDS: MONTELUKAST NA 10 MG TABLET PO SCH (22:06)
[2018-07-18] MEDS: MELATONIN 5 MG TABLETS PO PRN (22:06)
[2018-07-18] MEDS: hydrOXYzine PAMOATE 50 MG CAPSULE (FP) PO PRN (22:06)
[2018-07-18] MEDS: THIAMINE HCL 100 MG TABLET (FP) PO SCH (22:06)
[2018-07-18] MEDS: LIDOCAINE 5% TOPICAL PATCH TP SCH (22:08)
[2018-07-19] MEDS: LIDOCAINE PATCH REMOVAL MC SCH (11:12)
[2018-07-19] MEDS: NICOTINE 14 MG/24 HOURS TOPICAL PATCH TD SCH (11:12)
[2018-07-19] MEDS: ALBUTEROL SO4 8 GM HFA INHALER IH PRN ×2 (11:13→21:56)
[2018-07-19] MEDS: BUDESONIDE/FORMETEROL FUMARATE 80/4.5 mcg INHALER IH SCH ×2 (11:13→22:22)
[2018-07-19] MEDS: ACETAMINOPHEN 325 MG TABLET (FP) PO PRN (11:15)
[2018-07-19] MEDS: CYCLOBENZAPRINE HCL 5 MG TABLET PO PRN ×2 (11:15→21:53)
[2018-07-19] MEDS: PRENATAL VITAMINS W/ FOLIC ACID TABLET (FP) PO SCH (11:16)
[2018-07-19] MEDS: MELATONIN 5 MG TABLETS PO PRN (21:52)
[2018-07-19] MEDS: MONTELUKAST NA 10 MG TABLET PO SCH (21:52)
[2018-07-19] MEDS: THIAMINE HCL 100 MG TABLET (FP) PO SCH (21:52)
[2018-07-19] MEDS: hydrOXYzine PAMOATE 50 MG CAPSULE (FP) PO PRN (21:52)
[2018-07-19] MEDS: SUVOREXANT 10 MG TABLET PO PRN (21:54)
[2018-07-19] MEDS: LIDOCAINE 5% TOPICAL PATCH TP SCH (21:55)
[2018-07-20] MEDS: LIDOCAINE PATCH REMOVAL MC SCH (10:43)
[2018-07-20] MEDS: PRENATAL VITAMINS W/ FOLIC ACID TABLET (FP) PO SCH (10:44)
[2018-07-20] MEDS: BUDESONIDE/FORMETEROL FUMARATE 80/4.5 mcg INHALER IH SCH ×2 (10:44→22:06)
[2018-07-20] MEDS: NICOTINE 14 MG/24 HOURS TOPICAL PATCH TD SCH (10:44)
[2018-07-20] MEDS: CYCLOBENZAPRINE HCL 5 MG TABLET PO PRN (10:46)
[2018-07-20] MEDS: ALBUTEROL SO4 8 GM HFA INHALER IH PRN ×2 (10:46→22:07)
[2018-07-20] MEDS: LIDOCAINE 5% TOPICAL PATCH TP SCH (22:05)
[2018-07-20] MEDS: THIAMINE HCL 100 MG TABLET (FP) PO SCH (22:06)
[2018-07-20] MEDS: MELATONIN 5 MG TABLETS PO PRN (22:06)
[2018-07-20] MEDS: MONTELUKAST NA 10 MG TABLET PO SCH (22:08)
[2018-07-20] MEDS: hydrOXYzine PAMOATE 50 MG CAPSULE (FP) PO PRN (22:09)
[2018-07-20] MEDS: SUVOREXANT 10 MG TABLET PO PRN (22:09)
[2018-07-21] MEDS: LIDOCAINE PATCH REMOVAL MC SCH (10:20)
[2018-07-21] MEDS: NICOTINE 14 MG/24 HOURS TOPICAL PATCH TD SCH (10:21)
[2018-07-21] MEDS: ALBUTEROL SO4 8 GM HFA INHALER IH PRN ×2 (10:21→22:14)
[2018-07-21] MEDS: PRENATAL VITAMINS W/ FOLIC ACID TABLET (FP) PO SCH (10:21)
[2018-07-21] MEDS: BUDESONIDE/FORMETEROL FUMARATE 80/4.5 mcg INHALER IH SCH ×2 (10:21→22:14)
[2018-07-21] MEDS: CYCLOBENZAPRINE HCL 5 MG TABLET PO PRN ×2 (10:22→21:58)
[2018-07-21] MEDS: MONTELUKAST NA 10 MG TABLET PO SCH (21:56)
[2018-07-21] MEDS: THIAMINE HCL 100 MG TABLET (FP) PO SCH (21:56)
[2018-07-21] MEDS: SUVOREXANT 10 MG TABLET PO PRN (21:58)
[2018-07-21] MEDS: MELATONIN 5 MG TABLETS PO PRN (21:58)
[2018-07-21] MEDS: LIDOCAINE 5% TOPICAL PATCH TP SCH (21:59)
[2018-07-21] MEDS: hydrOXYzine PAMOATE 50 MG CAPSULE (FP) PO PRN (21:59)
[2018-07-22] MEDS: BUDESONIDE/FORMETEROL FUMARATE 80/4.5 mcg INHALER IH SCH ×2 (10:14→22:00)
[2018-07-22] MEDS: PRENATAL VITAMINS W/ FOLIC ACID TABLET (FP) PO SCH (10:14)
[2018-07-22] MEDS: NICOTINE 14 MG/24 HOURS TOPICAL PATCH TD SCH (10:14)
[2018-07-22] MEDS: LIDOCAINE PATCH REMOVAL MC SCH (10:15)
[2018-07-22] MEDS: ALBUTEROL SO4 8 GM HFA INHALER IH PRN ×2 (10:16→22:02)
[2018-07-22] MEDS: CYCLOBENZAPRINE HCL 5 MG TABLET PO PRN ×2 (10:16→21:59)
--- NOTE | 2018-07-22 11:06 | PN ---
Psychiatric Progress Note Vital Signs: Vital Signs Period Temp Pulse Resp BP Sys/Szymanski Pulse Ox Last 24 Hr 98.7 F 96 16-18 95/80 Date of Session: 07/22/18 Chief Complaint:: Discharge Note HPI: Patient addressing Opioid dependence comorbid with Nicotine Dependence, Substance-Induced Anxiety Disorder and Substance-Induced Sleep disorder ROS: Back pain, Asthma, Prostate cancer Current Medications: Active Medications Generic Name Dose Route Start Last Admin Trade Name Freq PRN Reason Stop Dose Admin Acetaminophen 650 mg 07/09/18 21:09 07/19/18 11:15 Tylenol - PO 650 mg Q4H PRN Administration FEVER Al Hydroxide/Mg Hydroxide 30 ml 07/09/18 21:09 Mylanta Oral Suspension - PO Q6H PRN DYSPEPSIA Albuterol Sulfate 2 puff 07/10/18 11:18 07/22/18 10:16 Ventolin Hfa Inhaler - IH 2 puff Q4H PRN Administration ASTHMA Budesonide/Formoterol Fumarate 2 puff 07/10/18 11:30 07/22/18 10:14 Symbicort 80/4.5mcg - IH 2 puff BID PEPE Administration Colloidal Oatmeal 1 applic 07/17/18 15:23 Aveeno Soap - TP DAILY PRN HYGEINE Cyclobenzaprine HCl 5 mg 07/10/18 10:47 07/22/18 10:16 Cyclobenzaprine Hcl PO 5 mg TID PRN Administration PAIN Eucalyptus/Menthol/Phenol/Sorbitol 1 each 07/09/18 21:09 Cepastat Lozenge - MM Q4H PRN SORE THROAT Hydroxyzine Pamoate 50 mg 07/09/18 21:09 07/21/18 21:59 Vistaril - PO 50 mg Q4H PRN Administration AGITATION Lidocaine 1 patch 07/13/18 22:00 07/21/18 21:59 Lidoderm Patch - TP 1 patch HS PEPE Administration Loperamide HCl 4 mg 07/09/18 21:09 Imodium - PO Q6H PRN DIARRHEA Magnesium Citrate 300 ml 07/09/18 21:09 Citroma - PO Q48H PRN CONSTIPATION Magnesium Hydroxide 30 ml 07/09/18 21:09 Milk Of Magnesia - PO DAILY PRN CONSTIPATION Melatonin 5 mg 07/09/18 22:00 07/21/18 21:58 Melatonin PO 5 mg HS PRN Administration INSOMNIA Miscellaneous 1 each 07/13/18 10:00 07/22/18 10:15 Lidoderm Patch Removal MC Not Given DAILY@1000 PEPE Montelukast Sodium 10 mg 07/09/18 22:00 07/21/18 21:56 Singulair - PO 10 mg HS PEPE Administration Nicotine 14 mg 07/10/18 10:00 07/22/18 10:14 Nicoderm Patch - TD Not Given DAILY PEPE Nicotine Polacrilex 2 mg 07/09/18 21:09 Nicorette Gum - BUC Q2H PRN NICOTINE REPLACEMENT RX Multivit/Folic Acid/Iron 1 tab 07/10/18 10:00 07/22/18 10:14 Vitamins (Sjr) - PO 1 tab DAILY PEPE Administration Suvorexant 10 mg 07/19/18 22:00 07/21/18 21:58 Belsomra PO 10 mg HS PRN Administration INSOMNIA Thiamine HCl 100 mg 07/09/18 22:00 07/21/18 21:56 Vitamin B1 - PO 100 mg HS PEPE Administration Current Side Effect: No Lab tests ordered: Yes Lab tests reviewed: Yes Provider note:: Patient will complete this program on 07/23/18. He has met his treatmenrt goals and will continue to address his issues in outpatient treatment at [facility] at [address] [place] [address]. Told continuity writer that from his participation in this program, he has learned the importance of staying away from people, places and things and also that his health is at utmost importance. He is stable for discharged on 07/23/18 Total face to face time:: 35 Mental Status Exam - Mental Status Exam Alert and Oriented to: Time, Place, Person Cognitive Function: Fair Patient Appearance: Well Groomed Mood: Hopeful, Euthymic Affect: Appropriate Patient Behavior: Cooperative Speech Pattern: Clear Voice Loudness: Normal Thought Process: Intact Thought Disorder: Not Present Hallucinations: Denies Suicidal Ideation: Denies Homicidal Ideation: Denies Insight/Judgement: Fair Sleep: Fair Appetite: Good Muscle strength/Tone: Normal Gait/Station: Normal Psychiatric Treatment Plan - Problem List (1) Opioid dependence Current Visit: Yes (2) Nicotine dependence Current Visit: Yes Qualifiers: Nicotine product type: cigarettes Substance use status: in remission Qualified Code(s): F17.211 - Nicotine dependence, cigarettes, in remission (3) Substance-induced anxiety disorder Current Visit: Yes (4) Substance-induced sleep disorder Current Visit: Yes (5) Back pain Current Visit: Yes Qualifiers: Back pain location: low back pain Chronicity: chronic Back pain laterality: unspecified Sciatica presence: unspecified whether sciatica present Qualified Code(s): M54.5 - Low back pain; G89.29 - Other chronic pain (6) H/O prostate cancer Current Visit: Yes (7) Asthma Current Visit: No Qualifiers: Asthma severity: mild Asthma persistence: intermittent Asthma complication type: uncomplicated Qualified Code(s): J45.20 - Mild intermittent asthma, uncomplicated Initial treatment plan: Patient will be discharged tomorrow and referred to [facility] for outpatient treatment
[2018-07-22] MEDS: MONTELUKAST NA 10 MG TABLET PO SCH (21:59)
[2018-07-22] MEDS: THIAMINE HCL 100 MG TABLET (FP) PO SCH (21:59)
[2018-07-22] MEDS: hydrOXYzine PAMOATE 50 MG CAPSULE (FP) PO PRN (21:59)
[2018-07-22] MEDS: SUVOREXANT 10 MG TABLET PO PRN (21:59)
[2018-07-22] MEDS ORDERED: SUVOREXANT 10 MG TABLET PO PRN (22:00)
[2018-07-22] MEDS: MELATONIN 5 MG TABLETS PO PRN (22:00)
[2018-07-22] MEDS: LIDOCAINE 5% TOPICAL PATCH TP SCH (22:00)
[2018-07-23 07:14] VITALS: BP 139/81; PULSE 78; TEMP 98.2
[2018-07-23] MEDS: LIDOCAINE PATCH REMOVAL MC SCH (10:52)
[2018-07-23] MEDS: NICOTINE 14 MG/24 HOURS TOPICAL PATCH TD SCH (10:53)
[2018-07-23] MEDS: BUDESONIDE/FORMETEROL FUMARATE 80/4.5 mcg INHALER IH SCH (10:53)
[2018-07-23] MEDS: PRENATAL VITAMINS W/ FOLIC ACID TABLET (FP) PO SCH (10:53)
== END 2018-07-23 09:15 | disposition home or self-care (01) | DRG 772 ==
LOC: YASAS 14:24 → Y5N 14:25
PROVIDERS: ADMIT Psychiatry & Neurology Psychiatry; ATTEND Psychiatry & Neurology Psychiatry
PROC: HZ42ZZZ Group Counseling for Substance Abuse Treatment, Cognitive-Behavioral (ICD-10-PCS; principal; 2018-07-09)
DX: F11.20 Opioid dependence, uncomplicated (principal); F17.210 Nicotine dependence, cigarettes, uncomplicated; F19.282 Other psychoactive substance dependence with psychoactive substance-induced sleep disorder; F19.280 Other psychoactive substance dependence with psychoactive substance-induced anxiety disorder; J45.20 Mild intermittent asthma, uncomplicated; M54.5 Low back pain; G89.29 Other chronic pain; R26.89 Other abnormalities of gait and mobility; Z99.89 Dependence on other enabling machines and devices; Z85.46 Personal history of malignant neoplasm of prostate